=== PATIENT | female | born 2000 | race Two or more races ===

== ENCOUNTER 2022-11-24 10:42 | Outpatient (OUT) | payer OTHER, SELFPAY ==
--- NOTE | 2022-11-24 10:44 | US_ITS ---
[address] [address] Patient Name: GERMÁN NAPOLES MRN: [id number] date: 2000 Sex: F Assigned Patient Location: US Current Patient Location: Accession/Order Number: [id number] Exam Date: 11/24/2022 10:50 Report Date: 11/25/2022 10:10 At the request of: RANJEET DE LEÓN Procedure: US OB placenta EXAM: US OB placenta, US OB transvaginal HISTORY: LOW LYING PLACENTA COMPARISON: None. TECHNIQUE: Transabdominal images FINDINGS: The uterus is anterior. No intraplacental or retroplacental echogenic abnormality. The placental edge is 6.3 cm from the cervical os The cervix measures 4.2 cm in length, closed IMPRESSION: Normal placenta Electronically authenticated by: CHUYITA CHACON Date: 11/25/2022 10:10
--- NOTE | 2022-11-24 10:44 | US_ITS ---
[address] [address] Patient Name: GERMÁN NAPOLES MRN: [id number] date: 2000 Sex: F Assigned Patient Location: US Current Patient Location: US Accession/Order Number: [id number] Exam Date: 11/24/2022 10:50 Report Date: 11/24/2022 17:04 At the request of: RANJEET DE LEÓN Procedure: US OB growth EXAMINATION: US OB growth HISTORY: SGA COMPARISON: No relevant comparison available. FINDINGS: [place]well intrauterine gestation position: Breech presentation, longitudinal lie Amniotic fluid volume: 10.4 cm, normal. Largest fluid pocket: 4.1 cm Placenta: Anterior. Placental edge is 6.3 cm from the internal os, grade 1. Heart rate: 135 beats minute Cervix: Closed, 4.1 cm BPD: 6.6 cm, 26 weeks 5 days, 5% Head circumference: 24.0 cm, 26 weeks 0 days, less than 3% Abdominal circumference: 21.0 cm, 25 weeks 4 days, less than 3% Femur length: 4.9 cm, 26 weeks 4 days, 5% Estimated weight: 1 lb. 15 oz., 1881 g, less than 3% Femur length BPD: 74.43 Head circumference to abdominal circumference: 1.14 Femur length abdominal circumference: 23.4 Clinical age: 20 weeks 1 day Clinical BE: 02/15/2023 Ultrasound age: 26 weeks 2 days Ultrasound BE: 02/28/2022 IMPRESSION: Intrauterine growth retardation with head circumference abdominal circumference and estimated weight less than 3rd percentile Electronically authenticated by: CHUYITA CHACON Date: 11/24/2022 17:04
--- NOTE | 2022-11-24 10:44 | US_ITS ---
[address] [address] Patient Name: GERMÁN NAPOLES MRN: [id number] date: 2000 Sex: F Assigned Patient Location: US Current Patient Location: Accession/Order Number: [id number] Exam Date: 11/24/2022 10:45 Report Date: 11/25/2022 10:10 At the request of: RANJEET DE LEÓN Procedure: US OB transvaginal EXAM: US OB placenta, US OB transvaginal HISTORY: LOW LYING PLACENTA COMPARISON: None. TECHNIQUE: Transabdominal images FINDINGS: The uterus is anterior. No intraplacental or retroplacental echogenic abnormality. The placental edge is 6.3 cm from the cervical os The cervix measures 4.2 cm in length, closed IMPRESSION: Normal placenta Electronically authenticated by: CHUYITA CHACON Date: 11/25/2022 10:10
== END 2022-11-24 10:43 | disposition home or self-care (01) ==
LOC: US 10:42
PROVIDERS: Visit Provider Obstetrics & Gynecology
DX: O44.42 Low lying placenta NOS or without hemorrhage, second trimester (principal); O36.5920 Maternal care for other known or suspected poor fetal growth, second trimester, not applicable or unspecified
CPT/HCPCS: 76815; 76816; 76817

== ENCOUNTER 2023-01-18 09:17 | Outpatient (OUT) | payer OTHER, SELFPAY ==
--- NOTE | 2023-01-18 09:18 | US_ITS ---
[address] [address] Patient Name: GERMÁN NAPOLES MRN: [id number] date: 2000 Sex: F Assigned Patient Location: US Current Patient Location: Accession/Order Number: [id number] Exam Date: 01/18/2023 09:19 Report Date: 01/18/2023 15:11 At the request of: RANJEET GONZALEZ Procedure: US OB growth EXAMINATION: US OB growth HISTORY: SGA COMPARISON: Ultrasound OB growth 11/24/2022 FINDINGS: Heart Rate: 150.0 bpm Number: 1.0 Position: Cephalic Amniotic Fluid Volume: 10.2 cm Maximum Vertical Pocket: 4.1 cm BIOMETRY: BPD: 8.3 cm cm; 33 weeks 1 days; < 3% HC: 30.0 cmcm; 33 weeks 2 days; <3% AC: 29.0 cm cm; 33 weeks 0 days; <3% FL: 6.6 cm cm; 33 weeks 6 days; 5% EFW: 2164.3 grams; < 3% FL/AC: 22.7 FL/BPD: 79.8 HC/AC: 1.0 GESTATIONAL AGE: Age by EDC: 36 weeks 1 days BE by EDC: 02/14/2023 Age by US: 33 weeks 2 days BE by US: 03/06/2023 US/US OB growth IMPRESSION: 1. Single live intrauterine with growth detailed above. 2. Estimated weight is less than 3rd percentile. Dr. Gonzalez was notified of these findings by production aide at time of imaging. Electronically authenticated by: OJ CROCKER Date: 01/18/2023 15:11
== END 2023-01-18 09:18 | disposition home or self-care (01) ==
LOC: US 09:17
PROVIDERS: Visit Provider Obstetrics & Gynecology
DX: O36.5930 Maternal care for other known or suspected poor fetal growth, third trimester, not applicable or unspecified (principal); Z3A.33 33 weeks gestation of pregnancy
CPT/HCPCS: 76816

== ENCOUNTER 2023-01-18 10:18 | Outpatient (OUT) | payer OTHER, SELFPAY ==
--- NOTE | 2023-01-18 10:34 | US_ITS ---
[address] [address] Patient Name: GERMÁN NAPOLES MRN: [id number] date: 2000 Sex: F Assigned Patient Location: [facility] Current Patient Location: Accession/Order Number: [id number] Exam Date: 01/18/2023 10:35 Report Date: 01/18/2023 16:06 At the request of: RANJEET DE LEÓN Procedure: US OB BPP w non-stress EXAMINATION: US OB BPP w non-stress HISTORY: IUGR COMPARISON: No relevant comparison available. TECHNIQUE: Ultrasound biophysical profile was performed in the radiology department. BREATHING MOVEMENTS: 2.0 GROSS BODY MOVEMENTS: 2.0 TONE: 2.0 QUALITATIVE AMNIOTIC FLUID VOLUME: 2.0 PRESENTATION: CEPHALIC HEART RATE: 135.0 bpm bpm. AMNIOTIC FLUID VOLUME: 12.5 cm GESTATIONAL AGE: 36 weeks 0 days CONCLUSION: Total biophysical profile score 8.0. Electronically authenticated by: OJ CROCKER Date: 01/18/2023 16:06
--- NOTE | 2023-01-18 10:34 | US_ITS ---
[address] [address] Patient Name: GERMÁN NAPOLES MRN: [id number] date: 2000 Sex: F Assigned Patient Location: [facility] Current Patient Location: [facility] Accession/Order Number: [id number] Exam Date: 01/18/2023 10:35 Report Date: 01/18/2023 11:31 At the request of: RANJEET DE LEÓN Procedure: US OB umbilical artery EXAMINATION: US OB umbilical artery HISTORY: IUGR COMPARISON: Ultrasound OB transvaginal 11/25/2022 TECHNIQUE: Duplex Doppler evaluation of the umbilical arteries. FINDINGS: HEART RATE: 135 UMBILICAL ARTERIES: 2 GESTATIONAL AGE: 36 weeks 0 days WAVEFORM: Normal upstroke. No notching. Forward flow in diastole. PEAK SYSTOLIC VELOCITY: 69 cm/s END DIASTOLIC VELOCITY: 19 cm/s SYST/DIAST RATIO (S:D): 3.5 RESISTIVE INDEX: 0.71 US/US OB umbilical artery IMPRESSION: 1. Class I = increased RI or PI, but still forward flow in diastole 2. Peak systolic/diastolic ratio is greater than 90th percentile (above 3.15) 3. Elevated resistive index (greater than 0.55) Electronically authenticated by: OJ CROCKER Date: 01/18/2023 11:31
== END 2023-01-18 11:40 | disposition home or self-care (01) ==
LOC: FBCO 10:19 → FBC 10:26
PROVIDERS: Visit Provider Obstetrics & Gynecology
DX: O36.5930 Maternal care for other known or suspected poor fetal growth, third trimester, not applicable or unspecified (principal); Z3A.33 33 weeks gestation of pregnancy
CPT/HCPCS: 76816; 76818; 76820

== ENCOUNTER 2023-01-23 19:51 | Outpatient (REF) | payer OTHER, SELFPAY | END 2023-01-23 19:52 | disposition home or self-care (01) | LOC: LAB 19:51 | PROVIDERS: Visit Provider Obstetrics & Gynecology | DX: Z34.93 Encounter for supervision of normal pregnancy, unspecified, third trimester (principal) | CPT/HCPCS: 87081; 87150 ==

== ENCOUNTER 2023-01-24 09:04 | Outpatient (OUT) | payer OTHER, SELFPAY ==
--- NOTE | 2023-01-24 09:25 | US_ITS ---
[address] [address] Patient Name: GERMÁN NAPOLES MRN: [id number] date: 2000 Sex: F Assigned Patient Location: [facility] Current Patient Location: Accession/Order Number: [id number] Exam Date: 01/24/2023 09:30 Report Date: 01/24/2023 16:34 At the request of: ROYAL THEODORE Procedure: US OB BPP w non-stress EXAMINATION: US OB BPP w non-stress HISTORY: SGA P05.10 COMPARISON: Ultrasound OB biophysical 01/18/2023 TECHNIQUE: Ultrasound biophysical profile was performed in the radiology department. BREATHING MOVEMENTS: 2.0 GROSS BODY MOVEMENTS: 2.0 TONE: 2.0 QUALITATIVE AMNIOTIC FLUID VOLUME: 2.0 PRESENTATION: Cephalic HEART RATE: 148.4 bpm bpm. AMNIOTIC FLUID VOLUME: 8.9 cm GESTATIONAL AGE: 37 weeks 0 days CONCLUSION: 1. Total biophysical profile score 8.0. 2. Distended, fluid-filled stomach and loops of bowel throughout the abdomen and pelvis. 3. Thin placenta containing numerous calcifications, grade 3. Electronically authenticated by: OJ CROCKER Date: 01/24/2023 16:34
[2023-01-24 09:52] VITALS: BP 113/67; PULSE 88
[2023-01-24 10:27] LABS: Basophils Percent Auto 0.1 % (0.2-2.0); Eosinophils Percent Auto 0.5 % (0.9-7.0); Hematocrit 40.8 % (36.0-48.0); Hemoglobin 13.7 g/dL (12.0-16.0); Immature Granulocytes Abs Auto 0.04 10^3/uL (0.00-0.03); Immature Granulocytes Pct Auto 0.5 % (0.0-0.5); Mean Corpuscular HGB Conc 33.6 g/dL (29.9-35.2); Mean Corpuscular Hemoglobin 30.3 pg (26.7-34.0); Mean Corpuscular Volume 90.3 fL (81.0-99.0); Mean Platelet Volume 10.2 fL (9.5-13.5); Monocytes Absolute Auto 0.4 10^3/uL (0.3-0.8); Monocytes Percent Auto 5.7 % (1.7-12.0); Neutrophils Absolute Auto 4.9 10^3/uL (1.4-6.5); Neutrophils Percent Auto 66.2 % (43.0-75.0); Platelet Count 247 10^3/uL (150-450); Red Blood Count 4.52 10^6/uL (4.20-5.40); Red Cell Distribution Width 14.5 % (11.0-15.0); White Blood Count 7.4 10^3/uL (4.0-11.0)
[2023-01-24 10:34] LABS: Estimated Average Glucose 103 mg/dL; Glycohemoglobin A1C 5.2 % (4.5-6.2)
[2023-01-24 10:38] LABS: Thyroid Stimulating Hormone 1.879 uIU/mL (0.358-3.740)
[2023-01-25 05:07] LABS: HCV Ab Non Reactive (Non Reactive); HIV Ab/p24 Ag Screen Non Reactive (Non Reactive); Rubella Antibodies, IgG 6.87 index (Immune >0.99)
[2023-01-25 06:08] LABS: HBsAg Screen Negative (Negative)
[2023-01-25 11:12] LABS: Rapid Plasma Reagin, Quant Non Reactive (NonRea<1:1)
== END 2023-01-24 11:00 | disposition home or self-care (01) ==
LOC: US 09:05 → FBC 09:06
PROVIDERS: Visit Provider Midwife
DX: O36.5930 Maternal care for other known or suspected poor fetal growth, third trimester, not applicable or unspecified (principal); Z3A.37 37 weeks gestation of pregnancy
CPT/HCPCS: 36415; 76818; 83036; 84443; 85025; 86592; 86706; 86762; 86803; 86850; 86900; 86901; 87086; 87389

== ENCOUNTER 2023-01-27 09:25 | Outpatient (OUT) | payer OTHER, SELFPAY | END 2023-01-27 09:53 | disposition home or self-care (01) | LOC: FBCO 09:25 → FBC 09:26 | PROVIDERS: Visit Provider Obstetrics & Gynecology | DX: O36.5990 Maternal care for other known or suspected poor fetal growth, unspecified trimester, not applicable or unspecified (principal); Z3A.00 Weeks of gestation of pregnancy not specified | CPT/HCPCS: 59025 ==

== ENCOUNTER 2023-01-31 09:24 | Outpatient (OUT) | payer OTHER, SELFPAY ==
--- NOTE | 2023-01-31 09:21 | US_ITS ---
[address] [address] Patient Name: GERMÁN NAPOLES MRN: [id number] date: 2000 Sex: F Assigned Patient Location: US Current Patient Location: Accession/Order Number: [id number] Exam Date: 01/31/2023 09:25 Report Date: 01/31/2023 17:34 At the request of: RANJEET DE LEÓN Procedure: US OB BPP w non-stress EXAMINATION: US OB BPP w non-stress HISTORY: Small for gestational age P05.10 COMPARISON: No relevant comparison available. TECHNIQUE: Ultrasound biophysical profile was performed in the radiology department. FINDINGS: BREATHING MOVEMENTS: 2.0 GROSS BODY MOVEMENTS: 2.0 TONE: 2.0 QUALITATIVE AMNIOTIC FLUID VOLUME: 2.0 PRESENTATION: CEPHALIC HEART RATE: 131.1 bpm H.B./min AMNIOTIC FLUID VOLUME: 7.7 cm cm GESTATIONAL AGE: 38 weeks 0 days Thinned placenta, grade 3. Suspected nuchal cord CONCLUSION: Total biophysical profile score: 8.0 Electronically authenticated by: CHUYITA CHACON Date: 01/31/2023 17:34
[2023-01-31 10:01] VITALS: BP 108/70; PULSE 67
== END 2023-01-31 10:36 | disposition home or self-care (01) ==
LOC: US 09:24 → FBC 09:25
PROVIDERS: Visit Provider Obstetrics & Gynecology
DX: O36.5930 Maternal care for other known or suspected poor fetal growth, third trimester, not applicable or unspecified (principal); Z3A.38 38 weeks gestation of pregnancy
CPT/HCPCS: 76818

== ENCOUNTER 2023-02-02 21:38 | Inpatient (IN) | payer OTHER, SELFPAY ==
--- NOTE | 2023-02-02 18:29 | US_ITS ---
[address] [address] Patient Name: GERMÁN NAPOLES MRN: [facility]:[id number] date: 2000 Sex: F Assigned Patient Location: [facility] Current Patient Location: [facility] Accession/Order Number: [id number] Exam Date: 02/02/2023 18:39 Report Date: 02/03/2023 15:04 At the request of: RANJEET DE LEÓN Procedure: US OB BPP w non-stress EXAMINATION: US OB BPP w non-stress HISTORY: SGA P05.10 COMPARISON: Ultrasound OB biophysical 01/31/2023 TECHNIQUE: Ultrasound biophysical profile was performed in the radiology department. BREATHING MOVEMENTS: 0.0 GROSS BODY MOVEMENTS: 2.0 TONE: 2.0 QUALITATIVE AMNIOTIC FLUID VOLUME: 2.0 PRESENTATION: CEPHALIC HEART RATE: 140.6 bpm bpm. AMNIOTIC FLUID VOLUME: 8.8 cm GESTATIONAL AGE: 38 weeks 2 days CONCLUSION: 1. Total biophysical profile score 6.0. 2. Grade 3, and placenta; unchanged. 3. Possible nuchal cord. Electronically authenticated by: OJ CROCKER Date: 02/03/2023 15:04
[2023-02-02 19:23] VITALS: RESP 16; TEMP 37.2
[2023-02-02 19:25] VITALS: BP 114/72; PULSE 80
[2023-02-02 22:21] LABS: Hematocrit 35.2 % (36.0-48.0); Mean Corpuscular HGB Conc 34.1 g/dL (29.9-35.2); Mean Corpuscular Hemoglobin 29.9 pg (26.7-34.0); Mean Corpuscular Volume 87.8 fL (81.0-99.0); Platelet Count 234 10^3/uL (150-450); Red Blood Count 4.01 10^6/uL (4.20-5.40); Red Cell Distribution Width 14.4 % (11.0-15.0)
[2023-02-02 22:31] LABS: Amphetamine Screen Urine NEGATIVE (NEGATIVE); Barbiturates Screen Urine NEGATIVE (NEGATIVE); Benzodiazepines Screen Urine NEGATIVE (NEGATIVE); Buprenorphine Screen Urine NEGATIVE (NEGATIVE); Cannabinoid Screen Urine NEGATIVE (NEGATIVE); Cocaine Screen Urine NEGATIVE (NEGATIVE); Methadone Screen Urine NEGATIVE (NEGATIVE); Methamphetamines Screen Urine NEGATIVE (NEGATIVE); Opiate Screen Urine NEGATIVE (NEGATIVE); Oxycodone Screen Urine NEGATIVE (NEGATIVE); Phencyclidine Screen Urine NEGATIVE (NEGATIVE); Tricyclic Antidepressant Urine NEGATIVE (NEGATIVE)
[2023-02-03] VITALS (42 sets, daily range): BP systolic 91–205; BP diastolic 56–92; PULSE 73–125; RESP 16–18; TEMP 36.6–37.2; O2SAT 100
[2023-02-03] MEDS: AMPICILLIN SODIUM 2,000 MG in 0.9 % SODIUM CHLORIDE 100 ML 200 MG IV (08:22)
[2023-02-03] MEDS: OXYTOCIN/0.9 % SODIUM CHLORIDE 10 UNITS/500 ML PLAST..BAG 6 UNIT IV (08:23)
[2023-02-03] MEDS: 0.9 % SODIUM CHLORIDE 1,000 ML 125 ML IV ×2 (08:24→15:16)
[2023-02-03] MEDS: AMPICILLIN SODIUM 1,000 MG in 0.9 % SODIUM CHLORIDE 50 ML 100 MG IV ×2 (11:29→15:47)
[2023-02-03] MEDS: MORPHINE SULFATE 2 MG/ML SYRINGE 1 MG IM (14:28)
[2023-02-03] MEDS: ROPIVACAINE HCL/PF 400 MG/200 ML PREMIX 9 MG EPIDURAL (15:14)
[2023-02-03] MEDS: FENTANYL CITRATE/PF 100 MCG/2 ML VIAL EPIDURAL ×2 (15:15)
--- NOTE | 2023-02-03 16:42 | PM.OBPRCVD ---
Procedure Intrapartal events: None Induction method: per pitocin protocol Delivery augmentation: rupture of membranes and pitocin Delivery monitor: external FHT and external uterine Route of delivery: Laceration description: periurethral - 1st degree Delivery repair: Vicryl Estimated blood loss (mL): 250 Anesthesia type: Epidural Disposition: floor Delivery date: 02/03/23 Gender: female presentation: vertex Placental delivery description: Spontaneous cord description: 3 Vessels Labor State Duration Total Length of Latency: 8 hours and 32 minutes
[2023-02-03] MEDS: OXYTOCIN 10 UNIT/ML VIAL IM (17:10)
--- NOTE | 2023-02-03 22:36 | PC.NURSE ---
pt and S.O. reminded to notify nurse before feeding to obtain accu checks on infant, both verbalize understanding and note placed in pts view as a reminder.
[2023-02-04] VITALS (7 sets, daily range): BP systolic 96–109; BP diastolic 55–69; PULSE 76–80; RESP 16; TEMP 36.2–37.2
[2023-02-04] MEDS: IBUPROFEN 600 MG TABLET PO (01:19)
[2023-02-04 06:49] LABS: Basophils Percent Auto 0.2 % (0.2-2.0); Eosinophils Percent Auto 0.1 % (0.9-7.0); Hematocrit 29.1 % (36.0-48.0); Hemoglobin 9.9 g/dL (12.0-16.0); Immature Granulocytes Abs Auto 0.05 10^3/uL (0.00-0.03); Immature Granulocytes Pct Auto 0.4 % (0.0-0.5); Lymphocytes Percent Auto 22.5 % (20.5-60.0); Mean Corpuscular Hemoglobin 30.4 pg (26.7-34.0); Mean Corpuscular Volume 89.3 fL (81.0-99.0); Mean Platelet Volume 10.4 fL (9.5-13.5); Monocytes Absolute Auto 0.8 10^3/uL (0.3-0.8); Monocytes Percent Auto 6.3 % (1.7-12.0); Neutrophils Absolute Auto 9.3 10^3/uL (1.4-6.5); Neutrophils Percent Auto 70.5 % (43.0-75.0); Platelet Count 203 10^3/uL (150-450); Red Blood Count 3.26 10^6/uL (4.20-5.40); Red Cell Distribution Width 14.6 % (11.0-15.0); White Blood Count 13.2 10^3/uL (4.0-11.0)
--- NOTE | 2023-02-04 09:18 | PM.OBPN ---
OB - PN: Subj Subjective Patient comments: no complaints, pain well controlled, tolerating diet and flatus present [place] infant status: doing well feeding status: breast and bottle feeding Exam Constitutional Vital Signs, click to edit/add: Last Vital Signs Temp 98.0 F 02/04/23 01:25 Pulse 76 02/04/23 08:10 Resp 16 02/04/23 01:25 BP 106/63 02/04/23 08:10 Pulse Ox 100 02/03/23 12:20 O2 Del Method Room Air 02/02/23 22:00 Documenting provider has reviewed patient's vital signs: yes Common normals: no apparent distress and oriented x3 General appearance: cooperative Orientation/consciousness: Yes awake, Yes oriented to person, Yes oriented to place and Yes oriented to time Lymph Lymphatic: no lymphadenopathy noted Chest Common normals: inspection of chest normal Respiratory Common normals: normal respiratory effort and no retractions Cardio Common normals: no JVD, regular rate, regular rhythm and no murmurs Rate: regular rate Rhythm: regular rhythm GI Common normals: Normal to inspection, nondistended, normoactive bowel sounds present Palpation: soft Percussion: normal to percussion Common normals: no CVA tenderness Extremity Common normals: normal to inspection Neuro Common normals: oriented x3 Sensorium/orientation: awake, alert, oriented to person, oriented to place and oriented to time Psych Common normals: mental status grossly normal Results Labs Labs: Short CBC 02/04/23 Range/Units 06:30 WBC 13.2 H (4.0-11.0) 10^3/uL Hgb 9.9 L (12.0-16.0) g/dL Hct 29.1 L (36.0-48.0) % Plt Count 203 (150-450) 10^3/uL OB - PN: A/P Plan - Vaginal Delivery day: 1 Plan: routine care Time Spent with Patient Time: Total time spent is greater than 50% in coordination of care (as documented) at patient's floor/unit and/or counseling patient: Total time spent with greater than 50% in coordination of care (as documented) at patient's floor/unit and/or counseling patient: less than 15 minutes
--- NOTE | 2023-02-04 17:50 | PC.NURSE ---
1640: patient requests to supplement baby with formula- she needs a little extra today other than my breasts- she's so little and I don't want her to be hungry. Educated on and supplement.
--- NOTE | 2023-02-04 19:14 | W.PC.ACHO ---
Registration Status: ADM IN Primary Language: Surinamese Preferred Language: Surinamese Active Medications Generic Name Dose Route Start Last Admin Trade Name Freq PRN Reason Stop Dose Admin Acetaminophen 650 mg 02/03/23 16:40 Acetaminophen 325 Mg Tablet PO Q6H PRN Mild Pain Al Hydroxide/Mg Hydroxide 2,400 mg 02/03/23 16:40 Magnesium Hydroxide 2,400 Mg/10 Ml Oral.Susp PO Q6H PRN Dyspepsia Benzocaine/Menthol 1 applic 02/03/23 16:40 Benzocaine/Menthol 85 Gram [place] Bottle TOPICAL Q2H PRN Pain Carboprost Tromethamine 250 mcg 02/02/23 21:06 Carboprost Tromethamine 250 Mcg/Ml 1 Ml Vial IM 02/04/23 21:06 Q15M PRN Bleeding Diphtheria/Pertussis/Tetanus Vacc 0.5 ml 02/05/23 09:00 Adacel Diph,Pertuss(Acell),Tet Vac/Pf 0.5 Ml Adult Syringe IM 02/05/23 09:01 .ONCE ONE Docusate Sodium 100 mg 02/04/23 09:00 Docusate Sodium 100 Mg Capsule PO BID JAMMIE Sodium Chloride 1,000 mls @ 125 mls/hr 02/02/23 21:15 02/03/23 15:16 Sodium Chloride 0.9% 1,000 Ml IV 125 mls/hr .Q8H PRN Administration Labor Induction Ibuprofen 600 mg 02/03/23 16:40 02/04/23 01:19 Ibuprofen 600 Mg Tablet PO 600 mg Q6H PRN Administration Moderate Pain Measles/Mumps/Rubella Vaccine Live 0.5 ml 02/05/23 09:00 Measles,Mumps,Rubella Vacc/Pf 0.5 Ml Vial SQ 02/05/23 09:01 .ONCE ONE Methylergonovine Maleate 0.2 mg 02/02/23 21:06 Methylergonovine Maleate 0.2 Mg/Ml Ampule IM 02/04/23 21:06 ONCE PRN Uterine Contractility/Contract Methylergonovine Maleate 0.2 mg 02/02/23 21:06 Methylergonovine Maleate 0.2 Mg Tablet PO 02/04/23 21:06 Q4H PRN Uterine Contractility/Contract Misoprostol 600 mcg 02/02/23 21:06 Misoprostol 100 Mcg Tablet PO 02/04/23 21:06 ONCE PRN Uterine Bleeding Misoprostol 800 mcg 02/02/23 21:06 Misoprostol 100 Mcg Tablet SL 02/04/23 21:06 ONCE PRN Uterine Bleeding Misoprostol 1,000 mcg 02/02/23 21:06 Misoprostol 100 Mcg Tablet MO 02/04/23 21:06 ONCE PRN Uterine Bleeding Ondansetron HCl 4 mg 02/02/23 21:06 Ondansetron Pf 4 Mg/2 Ml Vial IV Q6H PRN Nausea And Vomiting Ondansetron HCl 4 mg 02/02/23 21:06 Ondansetron 4 Mg Rapdis Tablet SL Q6H PRN Nausea And Vomiting Senna 17.2 mg 02/03/23 20:00 Sennosides 8.6 Mg Tablet PO QHS PRN Constipation Simethicone 80 mg 02/03/23 16:40 Simethicone 80 Mg Tab.Chew PO QID PRN Abdominal Distention Temazepam 15 mg 02/03/23 16:40 Temazepam 15 Mg Capsule PO QHS PRN Sleep Witch Gaby/Glycerin 1 pad 02/03/23 16:40 Glycerin/Witch Gaby Pads TOPICAL Q2H PRN Pain Respiratory Oxygen Delivery Method Room Air Cardiology Heart Sounds Strong,Regular Renal Bladder Pattern Continent
[2023-02-04] MEDS: DOCUSATE SODIUM 100 MG CAPSULE PO (21:41)
[2023-02-05 10:00] VITALS: RESP 16; TEMP 36.6
[2023-02-05 10:48] VITALS: BP 90/56; PULSE 83
[2023-02-05] MEDS: IBUPROFEN 600 MG TABLET PO (10:49)
[2023-02-05] MEDS: DOCUSATE SODIUM 100 MG CAPSULE PO (10:49)
--- NOTE | 2023-02-05 12:11 | PM.OBPN ---
OB - PN: Subj Subjective Patient comments: no complaints and pain well controlled [place] status: doing well Exam Constitutional Vital Signs, click to edit/add: Last Vital Signs Temp 99.0 F 02/04/23 23:55 Pulse 83 02/05/23 10:48 Resp 16 02/04/23 23:55 BP 90/56 02/05/23 10:48 Pulse Ox 100 02/03/23 12:20 O2 Del Method Room Air 02/04/23 17:08 Documenting provider has reviewed patient's vital signs: yes Common normals: no apparent distress Respiratory Common normals: normal respiratory effort and clear to auscultation bilaterally Cardio Common normals: regular rate and regular rhythm GI Common normals: Normal to inspection, nondistended, normoactive bowel sounds present Extremity Common normals: no clubbing, cyanosis or edema and no calf tenderness OB - PN: A/P Plan - Vaginal Delivery day: 2 Plan: routine care, discharge home and follow up 6 weeks Time Spent with Patient Time: Total time spent is greater than 50% in coordination of care (as documented) at patient's floor/unit and/or counseling patient: Total time spent with greater than 50% in coordination of care (as documented) at patient's floor/unit and/or counseling patient: less than 15 minutes
[2023-02-05 16:11] VITALS: BP 114/71; PULSE 86
[2023-02-05 16:58] VITALS: RESP 16; TEMP 36.4
--- NOTE | 2023-02-05 19:21 | W.PC.ACHO ---
Registration Status: ADM IN Primary Language: [place] Islander Preferred Language: [place] Active Medications Generic Name Dose Route Start Last Admin Trade Name Freq PRN Reason Stop Dose Admin Acetaminophen 650 mg 02/03/23 16:40 Acetaminophen 325 Mg Tablet PO Q6H PRN Mild Pain Al Hydroxide/Mg Hydroxide 2,400 mg 02/03/23 16:40 Magnesium Hydroxide 2,400 Mg/10 Ml Oral.Susp PO Q6H PRN Dyspepsia Benzocaine/Menthol 1 applic 02/03/23 16:40 Benzocaine/Menthol 85 Gram [place] Bottle TOPICAL Q2H PRN Pain Docusate Sodium 100 mg 02/04/23 09:00 02/05/23 10:49 Docusate Sodium 100 Mg Capsule PO 100 mg BID JAMMIE Administration Sodium Chloride 1,000 mls @ 125 mls/hr 02/02/23 21:15 02/03/23 15:16 Sodium Chloride 0.9% 1,000 Ml IV 125 mls/hr .Q8H PRN Administration Labor Induction Ibuprofen 600 mg 02/03/23 16:40 02/05/23 10:49 Ibuprofen 600 Mg Tablet PO 600 mg Q6H PRN Administration Moderate Pain Ondansetron HCl 4 mg 02/02/23 21:06 Ondansetron Pf 4 Mg/2 Ml Vial IV Q6H PRN Nausea And Vomiting Ondansetron HCl 4 mg 02/02/23 21:06 Ondansetron 4 Mg Rapdis Tablet SL Q6H PRN Nausea And Vomiting Senna 17.2 mg 02/03/23 20:00 Sennosides 8.6 Mg Tablet PO QHS PRN Constipation Simethicone 80 mg 02/03/23 16:40 Simethicone 80 Mg Tab.Chew PO QID PRN Abdominal Distention Temazepam 15 mg 02/03/23 16:40 Temazepam 15 Mg Capsule PO QHS PRN Sleep Witch Gaby/Glycerin 1 pad 02/03/23 16:40 Glycerin/Witch Gaby Pads TOPICAL Q2H PRN Pain Cardiology Heart Sounds Regular Renal Bladder Pattern Continent
[2023-02-05 23:19] VITALS: BP 113/77
[2023-02-05 23:25] VITALS: TEMP 36.8
== END 2023-02-05 23:28 | disposition home or self-care (01) | DRG 560 ==
LOC: FBC 21:39
PROVIDERS: Admitting Provider Obstetrics & Gynecology; Visit Provider Obstetrics & Gynecology
DX: O36.5930 Maternal care for other known or suspected poor fetal growth, third trimester, not applicable or unspecified (principal); Z3A.38 38 weeks gestation of pregnancy; Z87.891 Personal history of nicotine dependence; O70.0 First degree perineal laceration during delivery; Z37.0 Single live birth; Z87.440 Personal history of urinary (tract) infections
CPT/HCPCS: 36415; 59050; 59410; 76818; 80307; 85025; 85027; 86850; 86900; 86901; 96365; 96372; 96375; 96376

== ENCOUNTER 2023-02-08 08:16 | Outpatient (OUT) | payer OTHER, SELFPAY ==
[2023-02-08 10:23] VITALS: BP 106/67; PULSE 74; RESP 16; TEMP 36.9; O2SAT 96
--- NOTE | 2023-02-08 10:36 | PC.NURSE ---
Denies concerns with course. States feels well, is able to rest between feedings and has good support at home. FOB attentive and engaged during follow up appointment.
== END 2023-02-08 10:10 | disposition home or self-care (01) ==
LOC: FBCO 08:18
PROVIDERS: Visit Provider Obstetrics & Gynecology
DX: Z39.2 Encounter for routine postpartum follow-up (principal)